=== PATIENT | female | born 2000 | race Caucasian/White ===

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

== ENCOUNTER 2022-01-23 21:56 | Emergency (ER) | payer OTHER ==
[2022-01-23 22:03] VITALS: BP 112/70; PULSE 91; RESP 18; TEMP 98.1; BMI 20.1
[2022-01-23] MEDS ORDERED: IBUPROFEN 400 MG TABLET (FP) PO PRN (23:12)
[2022-01-23] MEDS ORDERED: IBUPROFEN 400 MG TABLET (FP) PO ONE (23:25)
== END 2022-01-23 23:37 | disposition home or self-care (01) ==
LOC: JER 21:56
DX: M25.561 Pain in right knee (principal)
CPT/HCPCS: 73610-TC-RT-FY; 99283-25

== ENCOUNTER 2022-02-10 16:16 | Emergency (ER) | payer OTHER ==
[2022-02-10 16:26] VITALS: BP 106/66; PULSE 72; RESP 18; TEMP 97.7; BMI 20.1
== END 2022-02-10 18:52 | disposition home or self-care (01) ==
LOC: JERFT 16:16
DX: S93.401A Sprain of unspecified ligament of right ankle, initial encounter (principal); Y99.8 Other external cause status
CPT/HCPCS: 73630-TC-RT-FY; 99283-25

== ENCOUNTER 2022-11-06 08:03 | Emergency (ER) | payer OTHER ==
[2022-11-06 08:15] VITALS: BP 109/64; PULSE 82; TEMP 98.1; BMI 21.4
[2022-11-06 08:35] VITALS: RESP 16
== END 2022-11-06 09:59 | disposition home or self-care (01) ==
LOC: JERFT 08:03 → JER 08:03 → JERFT 09:59
DX: R05.9 Cough, unspecified (principal); R51.9 Headache, unspecified; R69 Illness, unspecified
CPT/HCPCS: 71046-TC-FY; 99283-25